=== PATIENT | male | born 1955 | race Caucasian/White ===

== ENCOUNTER 2024-11-16 18:35 | Emergency (ER) | payer OTHER, SELFPAY ==
[2024-11-16 18:41] VITALS: BP 117/84
--- NOTE | 2024-11-16 18:45 | ED.GENMED ---
ED Provider Triage
<Clif Araiza Jr., PA-C - Last Filed: 11/16/24 18:49>
-
Patient seen by provider in Triage?: Seen in Triage
Attestation: A medical screening examination has been initiated by a qualified medical provider. Based on the assessment performed at this time, it has been determined that an emergent medical condition may exist and the patient has been informed
that further medical evaluation and possible additional diagnostic testing may be needed.
HPI: 69-year-old male presenting to the emergency department after hitting his left foot on the ground after tripping and falling. Recently had a procedure to his left foot by Dr. Tello. He contacted his orthopedic doctor who recommended coming
to the ER for assessment. Patient splint was not undone in the triage area as this would be more appropriate to be done in proper exam area. Patient is a physician.
GENERAL: Alert , in no apparent distress
EYE: No visual abnormalities.
NECK: Trachea midline
ENT: No visible abnormalities.
LUNGS: No acute respiratory distress
NEUROLOGICAL: Alert and oriented
SKIN: Skin intact. No visible changes.
MUSCULOSKELETAL: Splint in place to the left lower extremity
PSYCH: Normal and appropriate interaction.
This is a medical evaluation conducted in person to initiate diagnostic evaluation and provide initial therapeutics. Please see further documentation by the treating clinician.
History of Present Illness
<Clif Araiza Jr., PA-C - Last Filed: 11/16/24 18:49>
General
Chief Complaint: Musculo-Skeletal Complaint
Time Seen by Provider: 11/16/24 20:39
<Carlito Molina PA-C - Last Filed: 11/17/24 13:29>
General
Source: patient
History of Present Illness
History of Present Illness:
69-year-old male status post Kidner procedure on the left foot 5 days ago presenting to the emergency department after he sustained an accidental fall and potentially reinjured the left foot. Patient had surgery done with Dr. Tello. No other
injuries sustained. States has been wearing the splint since his surgery which she has not removed.
Past History
<Carlito Molina PA-C - Last Filed: 11/17/24 13:29>
Past History
ED Past Medical History: HTN, NIDDM, Hyperthyroidism and Psychiatric
ED Past Surgical History: Orthopedic
Social History
Tobacco: Non-smoker
Alcohol: None
Drug: None
Personal:
Living: with family
Employment: Employed
Review of Systems
<Carlito Molina PA-C - Last Filed: 11/17/24 13:29>
Review of Systems
All Other Systems: ROS reviewed and negative except as documented in HPI and ROS
Phy Exam
<Carlito Molina PA-C - Last Filed: 11/17/24 13:29>
Physical Exam
Physical Exam:
GENERAL: Alert , in no apparent distress
EYE: conjunctiva clear
Head: Normocephalic atraumatic
NECK: Supple,
ENT: mmm.
LUNGS: no acute respiratory distress
NEUROLOGICAL: Alert and oriented
SKIN: Warm and dry, incision over the dorsum of the foot and medial aspect of the foot are without dehiscence. There is mild to moderate soft tissue swelling and minimal erythema. No purulent drainage.
MUSCULOSKELETAL: well perfused. Easily palpable pedal pulse.
PSYCH: Normal and appropriate interaction.
Scores
<STEPH Ahmadi Last Filed: 11/17/24 13:29>
Heart Failure Risk
Heart Failure Risk Score: Not Applicable
Heart Score for Chest Pain Patients
STEMI patient?: Not applicable
Withdrawal Assessment of Alcohol
Withdrawal Assessment Completed?: Not applicable
Course
<Clif Araiza Jr., PA-C - Last Filed: 11/16/24 18:49>
Orders/Labs/Results
Orders:
Orders
11/16/24 20:39
CR Foot - Left Min 3 Views Urgent
Comment:
Reason For Exam: injury, recent surgery
11/16/24 21:11
Ketorolac [Toradol] 60 mg IM NOW STA
11/16/24 21:55
Amoxicillin 875 mg/Clav 125 mg [Augmentin 875 mg/125 mg] 1 tablet PO NOW STA
Vital Signs
Initial and Last Documented VS:
Initial Vital Signs
Temp Pulse Resp BP Pulse Ox
97.6 F 89 20 117/84 99
11/16/24 18:41 11/16/24 18:41 11/16/24 18:41 11/16/24 18:41 11/16/24 18:41
Last Documented Vital Signs
Temp Pulse Resp BP Pulse Ox
97.6 F 89 20 117/84 99
11/16/24 18:41 11/16/24 18:41 11/16/24 18:41 11/16/24 18:41 11/16/24 18:41
<Carlito Molina PA-C - Last Filed: 11/17/24 13:29>
Orders/Labs/Results
Orders:
Orders
11/16/24 20:39
CR Foot - Left Min 3 Views Urgent
Comment:
Reason For Exam: injury, recent surgery
11/16/24 21:11
Ketorolac [Toradol] 60 mg IM NOW STA
11/16/24 21:55
Amoxicillin 875 mg/Clav 125 mg [Augmentin 875 mg/125 mg] 1 tablet PO NOW STA
Vital Signs
Initial and Last Documented VS:
Initial Vital Signs
Temp Pulse Resp BP Pulse Ox
97.6 F 89 20 117/84 99
11/16/24 18:41 11/16/24 18:41 11/16/24 18:41 11/16/24 18:41 11/16/24 18:41
Last Documented Vital Signs
Temp Pulse Resp BP Pulse Ox
97.6 F 89 20 117/84 99
11/16/24 18:41 11/16/24 18:41 11/16/24 18:41 11/16/24 18:41 11/16/24 18:41
Procedures
<Carlito Molina PA-C - Last Filed: 11/17/24 13:29>
Splinting/Sling Placement
Left Lower Leg:
Procedure completed by: Jesse
Pre-splint extermity exam: neurovascular intact
Type of splint: posterior short leg
Splint material: other (4in orthoglass)
Splint checked by provider?: Yes
Normal distal neurovascular exam?: Yes
<Carlito Molina PA-C - Last Filed: 11/17/24 13:29>
MDM/Problems Addressed
Differential Diagnosis Includes:
Postoperative pain, fracture, sprain, contusion
MDM/Problems Addressed:
69-year-old male presenting the ER for evaluation after he accidentally fell, causing pain to the left foot, postop day 5 from recent surgery to the same foot. Recommended to come to the ER for imaging. Splint was removed and replaced as above.
Awaiting x-ray imaging. Anticipated discharge home with continued outpatient follow-up with podiatry.
<Carlito Molina PA-C - Last Filed: 11/17/24 13:29>
*Radiology
Radiology exam reviewed: preliminary read by ED provider (No obvious fracture, hardware intact)
*Pulse Oximetry
Patient hypoxic: no
*Critical Care Note
Total Time (30-74mins, 75-104mins- exclusive of procedures): Not Applicable
<Carlito Molina PA-C - Last Filed: 11/17/24 13:29>
Patient Management
Escalation/DeEscalation of care consider admission/obs:
Patient spoke with his surgeon, surgeon requesting patient be started on oral antibiotics. Will start on Augmentin. X-ray without fracture. Patient will follow-up with surgeon as directed. Aware of return precautions to the ER.
ED Attending Note
<Clif Araiza Jr., PA-C - Last Filed: 11/16/24 18:49>
-
Portions of this chart may have been created with voice recognition software.� Occasional wrong word or��sound alike� substitutions may have occurred due to the inherent limitations of voice recognition software.
Discharge Plan
Departure
Patient Disposition: Home (Routine Discharge)
Date of Disposition: 11/16/24
Time of Disposition: 22:20
Patient with high blood pressure during this ER visit?: No
Discharge Problem:
Acute postoperative pain of left foot, Accidental fall
Instructions: Managing pain after surgery
Prescriptions:
New
amoxicillin-pot clavulanate 875-125 mg tablet
1 tab PO BID Qty: 13 0RF
Referrals:
Sandro Pearl DO [Family Provider] -
Interventions
Interventions:
*Risk Screen - Suicide Last Done: 11/16/24 18:41
*General Assessment Last Done: 11/16/24 18:41
*Neglect/Abuse Screening Last Done: 11/16/24 18:41
ED- Fall Risk Assessment Last Done: 11/16/24 22:24
*ED COVID-19 Vaccine History Last Done: 11/16/24 22:24
*Nursing Disposition Last Done: 11/16/24 22:24
ED-Musculoskeletal Assessment Last Done: 11/16/24 19:59
Discharge Date and Time
Discharge Date/Time: 11/16/24 22:25
Print Language: SYRIAC
[2024-11-16 19:59] VITALS: BMI 28.7
[2024-11-16] MEDS: TORADOL 60 MG IM (21:17)
[2024-11-16] MEDS: AUGMENTIN 875 MG/125 MG 1 TABLET PO (22:20)
== END 2024-11-16 22:25 | disposition home or self-care (01) ==
LOC: EMR 18:35
PROVIDERS: EMERGENCY PHYSICIAN Student in an Organized Health Care Education/Training Program; FAMILY PHYSICIAN Family Medicine
DX: G89.18 Other acute postprocedural pain (principal); M79.672 Pain in left foot; W01.0XXA Fall on same level from slipping, tripping and stumbling without subsequent striking against object, initial encounter
CPT/HCPCS: 99284; 29515; 96372; 73630